=== PATIENT | female | born 1935 | race Hispanic/Latino ===

== ENCOUNTER 2018-08-14 06:34 | Observation (INO) | payer MEDICARE ==
[2018-08-07 10:08] LABS: BASOPHILS % 0.7 % (0.0-1.0); EOSINOPHILS # (AUTO) 0.2 (0.0-0.4); EOSINOPHILS % 3.2 % (0.0-6.0); HEMATOCRIT 38.9 % (34.2-44.1); HEMOGLOBIN 13.2 g/dL (12.0-16.0); LYMPHOCYTES # (AUTO) 1.8 (1.0-3.2); LYMPHOCYTES % 30.2 % (18.0-39.1); MEAN CORPUSCULAR HEMOGLOBIN 30.7 pg (28-32); MEAN CORPUSCULAR HGB CONC 33.9 g/dL (31-35); MEAN CORPUSCULAR VOLUME 90.5 fL (81-99); MONOCYTES # (AUTO) 0.4 (0.2-0.8); NEUTROPHILS # (AUTO) 3.6 (2.1-6.9); NEUTROPHILS % 59.7 % (38.7-80.0); PLATELET COUNT 248 x10e3/uL (140-360); RED CELL DISTRIBUTION WIDTH 14.6 % (11.7-14.4)
[2018-08-07 10:26] LABS: ANION GAP 12.8 mmol/L (8-16); CALCIUM 10.5 mg/dL (8.4-10.2); CREATININE, SERUM 0.95 mg/dL (0.57-1.11); POTASSIUM 3.8 mmol/L (3.5-5.1)
--- NOTE | 2018-08-07 11:12 | Diagnostic Imaging Report ---
EXAMINATION: CHEST 2 VIEWS INDICATION: Pre-op. COMPARISON: None FINDINGS: TUBES and LINES: None. LUNGS: Lungs are well inflated. Mild bibasilar subsegmental atelectasis. Linear opacity in the peripheral right mid lung, likely scarring. There is no evidence of pneumonia or pulmonary edema. PLEURA: No pleural effusion or pneumothorax. HEART AND MEDIASTINUM: The cardiomediastinal silhouette is unremarkable. There are atherosclerotic calcifications of the aorta. BONES AND SOFT TISSUES: No acute osseous abnormality. Moderate degenerative changes of the visualized spine. UPPER ABDOMEN: No free air under the diaphragm. IMPRESSION: No focal pneumonia or pulmonary edema. Signed by: Jose Alfredo Sanon MD on 08/07/2018 11:09 AM
[~2018-08-14] VITALS: Ht 152.4 cm; Wt 72.6 kg
[~2018-08-14 06:34] MED LIST: LEVOTHYROXINE75 MCG PO; LISINOPRIL10 MG PO
--- OUTSIDE RECORDS SUMMARY | 2018-08-14 06:37 | XMS REPORT ---
Author [facility] Address Unknown Phone Unavailable Care Team Providers Care Per Diem Name Role Phone Ortiz CORTES Unavailable Unavailable Problems This patient has no known problems. Allergies, Adverse Reactions, Alerts This patient has no known allergies or adverse reactions. Medications This patient has no known medications. Encounters Start Date/Time End Date/Time Encounter Type Admission Type Attending [facility] Care Facility Care Department Encounter ID 2018-07-04 07:14:00 2018-07-04 07:14:00 Outpatient [id number] 2018-06-26 13:51:00 2018-06-26 13:51:00 [id number] Results Test Description Test Time Test Comments Text Results Atomic Results Result Comments CHEST 2 VIEWS 2018-08-07 10:44:00 [place] [address] Patient Name: PARDEEP MABRY MR #: [id number] : 1935 Age/Sex: 82/F Req #: [id number] Adm Physician: Ordered by: JESSEE CORTES MD Report #: [id number] Location: OR Room/Bed: Procedure: [id number] DX/CHEST 2 VIEWS Exam Date: 08/07/18 Exam Time: 1010 REPORT STATUS: Signed EXAMINATION: CHEST 2 VIEWS INDICATION: Pre-op. COMPARISON: None FINDINGS: TUBES and LINES: None. LUNGS: Lungs are well inflated. Mild bibasilar subsegmental atelectasis. Linear opacity in the peripheral right mid lung, likely scarring. There is no evidence of pneumonia or pulmonary edema. PLEURA: No pleural effusion or pneumothorax. HEART AND MEDIASTINUM: The cardiomediastinal silhouette is unremarkable. There are atherosclerotic calcifications of the aorta. BONES AND SOFT TISSUES: No acute osseous abnormality. Moderate degenerative changes of the visualized spine. UPPER ABDOMEN: No free air under the diaphragm. IMPRESSION: No focal pneumonia or pulmonary edema. Signed by: Yuki Sanon MD on 08/07/2018 11:09 AM Dictated By: YUKI SANON MD [id number] Transcribed By: PHAM on 08/07/18 1109 COPY TO: JESSEE CORTES MD
[2018-08-14] MEDS ORDERED: AMLODIPINE BESY10 MG PO (07:15)
[2018-08-14] MEDS ORDERED: HYDROMORPHONE 2MG/ML 2 MG/ML ML IV PRN (10:15)
[2018-08-14] MEDS ORDERED: ACETAMINOPHEN 1000 MG/100 ML IV PRN (10:15)
[2018-08-14] MEDS ORDERED: HYDROCODONE/APAP 5MG-325MG TAB PO PRN (10:15)
[2018-08-14] MEDS ORDERED: ONDANSETRON HCL INJ 2MG/ML 2ML 2 MG/ML VIAL IV PRN (10:15)
--- NOTE | 2018-08-14 10:35 | Operative Report ---
DATE OF PROCEDURE: 08/14/2018 SURGEON: Emery Menjivar MD PREOPERATIVE DIAGNOSIS: Cancer of the right breast. POSTOPERATIVE DIAGNOSIS: Cancer of the right breast. OPERATION PERFORMED: Right total mastectomy. MOTOR VEHICLE LECTURER: MARTI Angel. ANESTHESIA: General. COMPLICATIONS: None. ESTIMATED BLOOD LOSS: 50 mL. PROCEDURE IN DETAIL: With the patient lying in bed in the supine position under good general endotracheal anesthesia, the chest and right breast and axilla were prepped with Betadine solution and draped in the usual manner. An elliptical incision was made to include the nipple-areolar complex. Flaps were then developed in all directions. The margins of the flaps were superiorly the clavicle, medially the sternum, inferiorly the rectus fascia and laterally the latissimus dorsi. The breast tissue was then taken off the pectoralis fascia and hemostasis was ascertained. All of the breast tissue as well as the pectoralis muscle laterally and the breast was removed without any difficulty and was properly labeled and sent for pathological examination. The whole area was then thoroughly irrigated. Perfect hemostasis was ascertained. A 10 flat Dain-Monsivais drain was then left in the wound and brought out through a separate stab wound incision and sutured to the skin with 2-0 silk and the wound was then closed with interrupted vertical mattress sutures of 2-0 and 3-0 silk. A dressing was applied. The sponge, lap, and needle count was correct. The patient tolerated the procedure well and returned to the recovery room in stable condition. Emery Menjivar MD JLR/MODL /[id number]
[2018-08-14] MEDS ORDERED: FENTANYL CITRATE/PF 100MCG/2 ML INJ ONE ×2 (11:14→17:42)
--- NOTE | 2018-08-14 12:55 | NUR ---
received report from PACU, pt is s/p total R mastectomy. pt is AOx3, on 2L o2 via NC, no s/s of distress. the pt has a L arm 20g IV with LR running. surgical site dressing is c/d/i. R Tae drain intact.
[2018-08-14] MEDS: SODIUM CHLORIDE 0.9% 1000ML 1,000 ML IV SCH ×3 (13:15→23:33)
[2018-08-14] MEDS ORDERED: HYDROCHLOROTHIA25 MG PO (13:24)
[2018-08-14 13:48] VITALS: BP 154/101
[2018-08-14 14:13] VITALS: BP 154/101
[2018-08-14] MEDS ORDERED: GLYCOPYRROLATE INJ 1MG/ 5 ML SYR ONE (15:06)
[2018-08-14] MEDS ORDERED: SEVOFLURANE INHAL SOLN 250 ML PEN BTL ONE (15:06)
[2018-08-14] MEDS ORDERED: ONDANSETRON HCL INJ 2MG/ML 2ML 2 MG/ML VIAL ONE (15:06)
[2018-08-14] MEDS ORDERED: DEXAMETHASONE SOD PHOS INJ 4 MG/ML VIAL ONE (15:06)
[2018-08-14] MEDS ORDERED: NEOSTIGMINE 5 MG/5ML SYR ONE (15:06)
[2018-08-14] MEDS ORDERED: ACETAMINOPHEN 1000 MG/100 ML IV ONE (15:06)
[2018-08-14] MEDS ORDERED: ROCURONIUM BROMIDE 10 MG/ML 5ML VIAL ONE (15:06)
[2018-08-14] MEDS ORDERED: PROPOFOL IV EMULSION 10 MG/ML 20 ML VIAL ONE (15:06)
[2018-08-14] MEDS: LISINOPRIL 20 MG TAB PO SCH (17:05)
[2018-08-14 17:21] VITALS: BP 137/74
--- NOTE | 2018-08-14 19:05 | NUR ---
RECEIVED PT RESTING IN BED WITH NO S/S OF DISTRESS.RESPIRATIONS EVEN/NON LABORED.ASSISTED PT TO BATHROOM AND BACK TO BED,PT VOIDED.PT DENIES ANY PAIN CURRENTLY.FAMILY MEMBER AT BEDSIDE.INSTRUCTED PT TO CALL FOR ASSISTANCE NEEDED BY USING CALL LIGHT.BED IN LOW/LOCKED POSITION.CALL LIGHT WITHIN EASY REACH.
[2018-08-14 19:58] VITALS: BP 139/78
[2018-08-14 20:00] VITALS: BP 139/78
[2018-08-15] VITALS: BP 137/67
[2018-08-15 04:00] VITALS: BP 147/63
[2018-08-15] MEDS ORDERED: LEVOTHYROXINE SODIUM 75 MCG TAB PO SCH (06:00)
[2018-08-15] MEDS: SODIUM CHLORIDE 0.9% 1000ML 1,000 ML IV SCH (06:09)
--- NOTE | 2018-08-15 07:00 | NUR ---
RECEIVED AM REPORT FROM RN, MORNING ROUNDS DONE. PT IS AWAKE LYING IN BED, NO S/S OF DISTRESS. FAMILY IS AT THE BEDSIDE, NO COMPLAINTS AT THIS TIME. PT NOT COMPLAINING OF PAIN AT THIS TIME.
--- NOTE | 2018-08-15 07:02 | NUR ---
REPORT GIVEN TO ONCOMING NURSE.WALKING ROUNDS MADE.PT RESTING IN BED WITH NO S/S OF DISTRESS.
[2018-08-15] MEDS: LISINOPRIL 20 MG TAB PO SCH (08:01)
[2018-08-15 08:06] VITALS: BP 144/66
[2018-08-15 08:30] VITALS: BP 144/66
[2018-08-15] MEDS ORDERED: AMLODIPINE BESYLATE 10 MG TAB PO SCH (09:00)
[2018-08-15 10:28] LABS: BASOPHILS % 0.2 % (0.0-1.0); EOSINOPHILS # (AUTO) 0.1 (0.0-0.4); EOSINOPHILS % 0.9 % (0.0-6.0); HEMATOCRIT 34.1 % (34.2-44.1); HEMOGLOBIN 11.1 g/dL (12.0-16.0); LYMPHOCYTES # (AUTO) 1.3 (1.0-3.2); LYMPHOCYTES % 13.4 % (18.0-39.1); MEAN CORPUSCULAR HEMOGLOBIN 30.6 pg (28-32); MEAN CORPUSCULAR HGB CONC 32.6 g/dL (31-35); MEAN CORPUSCULAR VOLUME 93.9 fL (81-99); MONOCYTES # (AUTO) 0.6 (0.2-0.8); MONOCYTES % 6.1 % (4.4-11.3); NEUTROPHILS # (AUTO) 7.6 (2.1-6.9); NEUTROPHILS % 78.8 % (38.7-80.0); PLATELET COUNT 198 x10e3/uL (140-360); RED BLOOD COUNT 3.63 x10e6/uL (3.6-5.1); RED CELL DISTRIBUTION WIDTH 14.6 % (11.7-14.4)
[2018-08-15 10:59] LABS: ANION GAP 9.7 mmol/L (8-16); CALCIUM 9.1 mg/dL (8.4-10.2); CREATININE, SERUM 0.91 mg/dL (0.57-1.11); POTASSIUM 3.7 mmol/L (3.5-5.1)
[2018-08-15] MEDS ORDERED: ONDANSETRON HCL 4 MG ORAL DISINTEGRATING TAB PO PRN (11:30)
[2018-08-15 12:00] VITALS: BP 132/60
== END 2018-08-15 12:00 | disposition home or self-care (01) ==
LOC: OR 06:34 → PACU V 10:12 → MED/SURG 13:05
PROVIDERS: ADMIT Surgery; ATTEND Surgery
DX: C50.911 Malignant neoplasm of unspecified site of right female breast (principal); Z01.810 Encounter for preprocedural cardiovascular examination; Z01.812 Encounter for preprocedural laboratory examination; Z01.811 Encounter for preprocedural respiratory examination; E03.9 Hypothyroidism, unspecified
CPT/HCPCS: 19303; 36415 ×2; 71046; 80048 ×2; 85025 ×2; 88307; 93005; G0378 ×2; J0131; J1100; J1170; J2405; J2704; J3490; J7030 ×2; J3010

== ENCOUNTER → 2019-11-26 | Outpatient (CLI) | payer MEDICARE ==
[~2019-11-26] MED LIST changes: +AMLODIPINE BESY10 MG PO; +HYDROCHLOROTHIA25 MG PO
[2019-11-26 10:41] LABS: BASOPHILS # (AUTO) 0.1 (0.0-0.1); BASOPHILS % 0.8 % (0.0-1.0); EOSINOPHILS # (AUTO) 0.2 (0.0-0.4); EOSINOPHILS % 2.3 % (0.0-6.0); HEMOGLOBIN 12.5 g/dL (12.0-16.0); LYMPHOCYTES # (AUTO) 1.8 (1.0-3.2); LYMPHOCYTES % 26.9 % (18.0-39.1); MEAN CORPUSCULAR HEMOGLOBIN 30.6 pg (28-32); MEAN CORPUSCULAR HGB CONC 32.9 g/dL (31-35); MEAN CORPUSCULAR VOLUME 92.9 fL (81-99); MONOCYTES # (AUTO) 0.4 (0.2-0.8); MONOCYTES % 5.6 % (4.4-11.3); NEUTROPHILS # (AUTO) 4.2 (2.1-6.9); NEUTROPHILS % 64.1 % (38.7-80.0); PLATELET COUNT 205 x10e3/uL (140-360); RED BLOOD COUNT 4.09 x10e6/uL (3.6-5.1); RED CELL DISTRIBUTION WIDTH 13.4 % (11.7-14.4)
[2019-11-26 11:01] LABS: ALBUMIN 3.9 g/dL (3.5-5.0); ALBUMIN/GLOBULIN RATIO 1.1 (0.8-2.0); ANION GAP 14.2 mmol/L (8-16); CALCIUM 9.8 mg/dL (8.4-10.2); CREATININE, SERUM 1.1 mg/dL (0.57-1.11); POTASSIUM 4.2 mmol/L (3.5-5.1)
== END ==
LOC: MAMMO 09:25
PROVIDERS: ATTEND Surgery
DX: Z12.31 Encounter for screening mammogram for malignant neoplasm of breast (principal); Z85.3 Personal history of malignant neoplasm of breast
CPT/HCPCS: 36415; 71046; 80053; 82378; 85025

== ENCOUNTER → 2020-12-09 | Outpatient (CLI) | payer MEDICARE | LOC: MAMMO 09:55 | PROVIDERS: ATTEND Internal Medicine | DX: Z12.31 Encounter for screening mammogram for malignant neoplasm of breast (principal) ==

== ENCOUNTER → 2023-11-03 | Day surgery (SDC) | payer MEDICARE ==
[2023-11-02 13:44] LABS: BASOPHILS # (AUTO) 0.1 (0.0-0.1); BASOPHILS % 0.8 % (0.0-1.0); EOSINOPHILS # (AUTO) 0.2 (0.0-0.4); EOSINOPHILS % 1.9 % (0.0-6.0); HEMATOCRIT 36.3 % (34.2-44.1); HEMOGLOBIN 11.5 g/dL (12.0-16.0); LYMPHOCYTES # (AUTO) 1.9 (1.0-3.2); MEAN CORPUSCULAR HEMOGLOBIN 30.9 pg (28-32); MEAN CORPUSCULAR HGB CONC 31.7 g/dL (31-35); MEAN CORPUSCULAR VOLUME 97.6 fL (81-99); MONOCYTES # (AUTO) 0.6 (0.2-0.8); MONOCYTES % 7.6 % (4.4-11.3); NEUTROPHILS % 64.4 % (38.7-80.0); PLATELET COUNT 199 x10e3/uL (140-360); RED BLOOD COUNT 3.72 x10e6/uL (3.6-5.1); RED CELL DISTRIBUTION WIDTH 13.6 % (11.7-14.4); WHITE BLOOD COUNT 7.77 x10e3/uL (4.8-10.8)
[2023-11-02 13:59] LABS: ANION GAP 13.9 mmol/L (8-16); CALCIUM 9.6 mg/dL (8.4-10.2); CREATININE, SERUM 1.48 mg/dL (0.57-1.11); POTASSIUM 3.9 mmol/L (3.5-5.1)
[~2023-11-03] MED LIST changes: +BUPIVACAINE HC 0.75% PF 10ML VIAL INJ ONE; +EPINEPHRINE HCL 1:1000 1ML 1 MG/ML AMP ONE; +FAMOTIDINE20 MG PO; +HYDRALAZINE HCL50 MG PO; +LOSARTAN POTAS100 MG PO; +POVIDONE IODINE 5% (OPTH) 30 ML BTL ONE; +PROPOFOL IV EMULSION 10 MG/ML 20 ML VIAL ONE; +TAMOXIFEN CITRA10 MG PO
[2023-11-03] MEDS: PHENYLEPHRINE HCL 2 ML DROPS ONE (10:04)
[2023-11-03] MEDS: GATIFLOXACIN(OPTH) 5 ML LIQD ONE (10:04)
[2023-11-03] MEDS: CYCLOPENTOLATE HCL 2% OPTH SOLN 2 ML BTL OP ONE (10:04)
[2023-11-03] MEDS: LACTATED RINGER'S 1,000 ML ONE (10:04)
[2023-11-03 11:20] VITALS: BP 169/70; PULSE 71; RESP 17; TEMP 97.1; O2SAT 97
== END | disposition home or self-care (01) ==
LOC: OR 07:50
PROVIDERS: ATTEND Ophthalmology
DX: H25.12 Age-related nuclear cataract, left eye (principal); I10 Essential (primary) hypertension; E03.9 Hypothyroidism, unspecified; Z01.810 Encounter for preprocedural cardiovascular examination; Z01.812 Encounter for preprocedural laboratory examination; Z79.899 Other long term (current) drug therapy
CPT/HCPCS: 36415; 66984; 80048; 85025; 93005; J0171; J2704; J7121; V2632